=== PATIENT | female | born 1955 | race Caucasian/White ===

== ENCOUNTER 2023-06-07 12:52 | Emergency (ER) | payer OTHER, SELFPAY ==
[2023-06-07 12:54] VITALS: BP 151/77
--- NOTE | 2023-06-07 12:59 | ED.GENMED ---
History of Present Illness
General
Chief Complaint: Musculo-Skeletal Complaint
Time Seen by Provider: 06/07/23 12:59
Travel History
Have you had any contact with someone who has COVID-19?: No
Do you have any symptoms of coronavirus? Fever > 100 degrees, chills, cough, shortness of breath, sore throat, loss of taste or smell, muscle aches, or headache?: No
History of Present Illness
History of Present Illness:
HPI: Earlier today, while walking up the steps she stubbed her toe and fell forward striking the back of her left hand onto the door frame. She primarily complains of pain at the fourth and fifth digits. She has decreased function into flexion at
these digits. She denies any other symptoms.
EXAM:
GENERAL: Well appearing in no distress
HEENT: Moist oral mucosa
NEUROLOGIC: Excellent strength all extremities, no coordination deficits, no sensory deficits
PSYCHIATRIC: Appropriate mental status, normal insight and judgement
EXTREMITIES: She has mild tenderness to digits 4 and 5 with less tenderness at the MCP joints of digits 4 and 5 on the left. She has decreased active range of motion into flexion at these digits. There is no obvious deformity
SKIN: No rash, no lesions
TIME OF INITIAL ENCOUNTER: 1:20 PM
NUMBER AND COMPLEXITY OF PROBLEMS ADDRESSED AT THE ENCOUNTER
� Chronic conditions affecting care: Has had discectomy and knee arthroscopy in the past
� Acute Exacerbation and/or Progression of Chronic Illness: This is an acute problem
� Differential Diagnosis includes: Hand contusion, sprain, fracture, dislocation very unlikely
AMOUNT AND/OR COMPLEXITY OF DATA TO BE REVIEWED AND ANALYZED
� I performed an independent evaluation of and my interpretation is:
EKG:
CT:
X-rays: I personally reviewed the x-ray and see no evidence for fracture
Laboratory Studies:
Other:
� Review of other/old records: I reviewed records, the patient had a colonoscopy in 2020
� Clinical information was obtained by an independent historian: I spoke to the at bedside
� Prescriptions/Medications Considered but not given:
� Further testing considered but not performed:
RISK OF COMPLICATIONS AND/OR MORBIDITY OR MORTALITY OF PATIENT MANAGEMENT
� Social determinants of health affecting care: Lives at home
� Discussion with other providers:
� Escalation of care including admission/observation vs risk of discharge considered: We have splinted the fourth and fifth digits as she does have decreased active range of motion along with tenderness on examination. I
recommend that she follows up with Ortho if symptoms persist. Imaging is unremarkable.
Past History
Past History
ED Past Surgical History: Gynecological
Social History
Tobacco: Non-smoker
Personal:
Living: with family
Phy Exam
Physical Exam
Physical Exam:
See HPI
Course
Orders/Labs/Results
Orders:
Orders
06/07/23 12:56
Hand, Left 3 View [CR Hand - Left Min 3 Views] Urgent
Comment:
Reason For Exam: pain
06/07/23 13:31
Aluminium Finger Splint Left ONCE
Comment: both digits 4 and 5
Vital Signs
Initial and Last Documented VS:
Initial Vital Signs
Temp Pulse Resp BP Pulse Ox
98.2 F 88 18 151/77 98
06/07/23 12:54 06/07/23 12:54 06/07/23 12:54 06/07/23 12:54 06/07/23 12:54
Last Documented Vital Signs
Temp Pulse Resp BP Pulse Ox
98.2 F 88 18 151/77 98
06/07/23 12:54 06/07/23 12:54 06/07/23 12:54 06/07/23 12:54 06/07/23 12:54
*Critical Care Note
Total Time (30-74mins, 75-104mins- exclusive of procedures): Not Applicable
ED Attending Note
-
Portions of this chart may have been created with voice recognition software.� Occasional wrong word or��sound alike� substitutions may have occurred due to the inherent limitations of voice recognition software.
Discharge Plan
Departure
Patient Disposition: Home (Routine Discharge)
Date of Disposition: 06/07/23
Time of Disposition: 13:30
Patient with high blood pressure during this ER visit?: Yes
Discharge Problem:
Contusion of hand
Instructions: Contusion (DC), Splint Care
Prescriptions:
No Action
cetirizine 10 MG tablet
10 mg PO DAILY
meloxicam 7.5 MG tablet
7.5 mg PO DAILY PRN (Reason: pain)
diphenhydramine HCl [Benadryl] 25 MG capsule
50 mg PO HS PRN (Reason: sleep)
pseudoephedrine HCl [Sudogest] 30 MG tablet
60 mg PO Q12H PRN (Reason: congestion)
oxycodone-acetaminophen 5 MG/325 MG tablet
1 - 2 tab PO Q6HPRN PRN (Reason: moderate-severe pain) Qty: 20 0RF
Referrals:
Shailesh Brady MD [Active] - Follow up in 2-3 days
Activity Restrictions/Additional Instructions:
The radiologist also does not see any signs of fracture or dislocation. We have given you splints to use. I would recommend that you use them for the next couple of days. I have given you the contact information for local orthopedist to follow-up
with.
Interventions
Interventions:
*Risk Screen - Suicide Last Done: 06/07/23 12:54
*General Assessment Last Done: 06/07/23 12:54
*Neglect/Abuse Screening Last Done: 06/07/23 12:54
*ED COVID-19 Vaccine History Last Done: 06/07/23 12:54
Discharge Date and Time
Print Language: AMERICAN
== END 2023-06-07 14:00 | disposition home or self-care (01) ==
LOC: EMR 12:52
PROVIDERS: EMERGENCY PHYSICIAN Emergency Medicine; FAMILY PHYSICIAN Internal Medicine
DX: S60.222A Contusion of left hand, initial encounter (principal); W10.9XXA Fall (on) (from) unspecified stairs and steps, initial encounter
CPT/HCPCS: 99283; 29130; 73130

== ENCOUNTER → 2023-11-20 16:08 | Outpatient (REF) | payer OTHER, SELFPAY | LOC: HWWDC 16:08 | PROVIDERS: ATTENDING PHYSICIAN Internal Medicine | DX: Z12.39 Encounter for other screening for malignant neoplasm of breast (principal) | CPT/HCPCS: 77063; 77067 ==

== ENCOUNTER → 2024-05-20 15:59 | Outpatient (REF) | payer OTHER, SELFPAY | LOC: RAD 15:59 | PROVIDERS: ATTENDING PHYSICIAN Nurse Practitioner Primary Care | DX: S29.012A Strain of muscle and tendon of back wall of thorax, initial encounter (principal); M54.6 Pain in thoracic spine | CPT/HCPCS: 71101; 72072 ==